=== PATIENT | male | born 1970 | race Caucasian/White ===

== ENCOUNTER → 2016-06-16 | Outpatient (CLI) | payer MEDICARE ==
[~2016-06-16] MED LIST: ALBUTEROL2 PUFFS/17 IN; ASPIR-LOW81 MG PO; AZITHROMYCIN250 MG PO; BENZTROPINE MESY1 MG PO; BUPROPION HCL150 M1 PO; CIPRO 500MG TA500 MG PO; CITALOPRAM20 MG PO; COGENTIN GENERIC1 MG PO; GABAPENTIN 600600 MG PO; GABAPENTIN300 MG PO; HYDROXYZINE 25M25 MG PO; IBUPROFEN 600M600 MG OR; INDERAL10 MG PO; LEVAQUIN750 MG PO; LORTAB 5/500 501 TAB PO; LORTAB 500 MG-71 TAB PO; MOTRIN 400MG.400 MG PO; NEURONTIN400 MG PO; PAROXETINE20 MG PO; PROAIR HFA0.09 MG/AC IH; PROTONIX 40MG T40 MG PO; QUETIAPINE FUM300 M1 PO; RISPERIDONE1 MG PO; SERTRALINE 100100 MG PO; TRAMADOL 50MG T50 MG PO; TRAZODONE 50MG50 MG PO; TYLENOL WITH CO1 TA1 PO; ZANTAC 300300 MG PO
--- NOTE | 2016-06-16 16:16 | RADIOLOGY REPORT PS360 ---
CT CHEST W/O CONTRAST HISTORY: Follow-up abnormal chest x-ray, atelectasis, fibrosis, ABNORMAL CXR TECHNIQUE: Helical acquisition obtainedwithout contrast. Axial, sagittal, and coronal reformatted images are generated and reviewed. COMPARISON: Chest x-ray 05/15/[address] scan 10/28/2009 FINDINGS: The isthmus of the thyroid gland is somewhat thickened similar compared to the previous exam measuring 15 mm in AP dimension. Scattered small nodes are present in the axilla. Normal heart size. No mediastinal or hilar mass. A 3 mm noncalcified nodule present in the right upper lobe. Fibrotic changes are present in the right middle lobe along minor fissure unchanged. A 2 to 3 mm nodules present in the right lower lobe laterally probably unchanged. Calcified granuloma is present in the right lung base. No effusions or infiltrates. No suspicious masses or endobronchial lesions. Upper abdominal images show hepatic steatosis. No acute bony anomalies. IMPRESSION: 1. Overall stable CT appearance of the chest. No change with no acute finding. 2. Stable small right-sided pulmonary nodules 3 mm or less.
== END ==
LOC: RT 06-13 13:00 → RAD 06-13 14:30 → RT 06-15 13:00
DX: R06.02 Shortness of breath (principal); R06.09 Other forms of dyspnea; R91.8 Other nonspecific abnormal finding of lung field